=== PATIENT | female | born 1995 | race Caucasian/White ===

== ENCOUNTER 2017-12-08 11:05 | Emergency (ER) | payer OTHER ==
[~2017-12-08] VITALS: Ht 167.6 cm; Wt 57.3 kg
--- NOTE | 2017-12-08 11:20 | NUR ---
sore throat x 1 week, no relief from abx, NAD noted, VSS, resp even and unlabored, pt was put on monitor, waiting for md turcios.
[2017-12-08 12:16] LABS: BASOPHILS # (AUTO) 0.1 /CMM (0.0-0.2); BASOPHILS % (AUTO) 0.8 % (0.0-2.0); EOSINOPHILS % (AUTO) 1.4 % (0.0-6.0); HEMATOCRIT 40 % (33-45); HEMOGLOBIN 13.6 g/dL (11.5-14.8); LYMPHOCYTES # (AUTO) 1.4 /CMM (0.8-4.8); LYMPHOCYTES % (AUTO) 17.5 % (20.0-44.0); MEAN CORPUSCULAR HEMOGLOBIN 30 PG (26.0-33.0); MEAN CORPUSCULAR HGB CONC 34 g/dl (31.0-36.0); MEAN CORPUSCULAR VOLUME 89 fL (82-100); MONOCYTES # (AUTO) 0.5 /CMM (0.1-1.30); MONOCYTES % (AUTO) 6.1 % (2.0-12.0); NEUTROPHILS % (AUTO) 74.2 % (43.0-81.0); PLATELET COUNT (AUTO) 348 /CMM (150-450); RDW COEFFICIENT OF VARIATION 12.5 (11.5-15.0); RED BLOOD CELL COUNT(AUTO) 4.52 MIL/uL (4.0-5.2); WHITE BLOOD COUNT (AUTO) 8.1 K/uL (4.3-11.0)
[2017-12-08] MEDS ORDERED: IOHEXOL-300 100 ML VIAL IV ONE (12:16)
[2017-12-08] MEDS ORDERED: IV NS 0.9% 250 ML IV ONE (12:17)
[2017-12-08] MEDS ORDERED: CT SWABBABLE VALVE TRANS SET 1 EA INFUS.SET MC ONE (12:17)
--- NOTE | 2017-12-08 12:24 | NUR ---
throat culture sent to lab
[2017-12-08 12:26] LABS: INR 0.92 (0.85-1.15)
--- NOTE | 2017-12-08 12:27 | NUR ---
pt back from ctscan
[2017-12-08 12:31] LABS: ALBUMIN 3.5 g/dL (3.4-5.0); BILIRUBIN,TOTAL 0.2 mg/dL (0.2-1.0); CREATININE 0.9 mg/dL (0.6-1.3); POTASSIUM 4.4 mmol/L (3.5-5.1); TOTAL PROTEIN, SERUM 7.9 g/dL (6.4-8.2)
--- NOTE | 2017-12-08 13:52 | NUR ---
Patient discharged to home in stable condition. Written and verbal after care instructions given. Patient verbalizes understanding of instruction.IV removed. Catheter intact and site benign. Pressure and 4x4 applied to site. No bleeding noted.
[2017-12-08 13:54] VITALS: BP 121/79
== END 2017-12-08 13:54 | disposition home or self-care (01) ==
LOC: ER 11:07
DX: J03.90 Acute tonsillitis, unspecified (principal); Z60.2 Problems related to living alone
CPT/HCPCS: 36415; 70491; 80053; 85025; 85610; 87070; 99285; A4606; J7050; Q9967; Z7610